=== PATIENT | male | born 2000 | race Caucasian/White ===

== ENCOUNTER 2021-05-05 07:34 | Day surgery (SDC) | payer BC ==
[2021-05-04 11:42] VITALS: BMI 24.9
[2021-05-05] MEDS ORDERED: ceFAZolin 2 GM/DEX 5% 100 ML BAG ONE (08:32)
[2021-05-05] MEDS ORDERED: Lidocaine 1% w/Epinephrine 1:100K 20 ML VIAL ONE (08:44)
[2021-05-05] MEDS ORDERED: Bupivacaine 0.25% HCL 30 ML VIAL ONE (08:44)
[2021-05-05] MEDS ORDERED: Fentanyl 250 MCG/5 ML VIAL ONE (09:47)
[2021-05-05] MEDS ORDERED: Midazolam HCl 2 mg/2 ml Vial ONE (09:47)
[2021-05-05] MEDS ORDERED: Ondansetron PF 4 MG/2 ML Vial ONE (09:59)
[2021-05-05] MEDS ORDERED: Rocuronium Bromide 10 MG/ML (10ML VIAL) ONE (09:59)
[2021-05-05] MEDS ORDERED: Glycopyrrolate 0.2 MG/ML 5 ML SYRINGE ONE (09:59)
[2021-05-05] MEDS ORDERED: Lidocaine 1% PF 5 ML VIAL ONE (09:59)
[2021-05-05] MEDS ORDERED: PROPOFOL 200 MG/20 ML VIAL ONE (09:59)
[2021-05-05] MEDS ORDERED: Ketorolac Tromethamine 30 MG/ML VIAL ONE (09:59)
== END 2021-05-05 14:10 | disposition home or self-care (01) ==
LOC: SDC 07:34
PROVIDERS: ATTEND Surgery
PROC: 0YU54JZ Supplement Right Inguinal Region with Synthetic Substitute, Percutaneous Endoscopic Approach (ICD-10-PCS; principal; 2021-05-05)
DX: K40.90 Unilateral inguinal hernia, without obstruction or gangrene, not specified as recurrent (principal); Z98.890 Other specified postprocedural states; Z79.899 Other long term (current) drug therapy
CPT/HCPCS: C1781; J1885; J2250; J2405; J2704; J3010; S0020